=== PATIENT | female | born 1980 | race Caucasian/White ===

== ENCOUNTER 2018-09-22 06:20 | Day surgery (SDC) | payer OTHER, SELFPAY ==
[2018-09-16 12:01] VITALS: BMI 21.7
[2018-09-22] VITALS (7 sets, daily range): BP systolic 102–121; BP diastolic 54–78; PULSE 58–73; RESP 8–16; TEMP 36.3–37.1; O2SAT 100; BMI 21.7
--- NOTE | 2018-09-22 | PATH_ITS ---
[facility] Accession Number: [id number] . 01 Material submitted: . ANAL POLYP . 02 Diagnosis: Anal Polyp, Biopsy: Benign fibroepithelial polyp (skin tag). V/09/23/2018 . 02 Electronically signed: . Yeimy Lyons MD, Pathologist NPI- [id number] . 01 Gross description: . Received one formalin-filled container labeled with the patient's name and labeled anal polyp. The specimen consists of a 0.4 x 0.4 x 0.7 cm, mojica-arana, dome-shaped portion of tissue. The specimen is inked, bisected, and entirely submitted in one cassette. (DC:[id number]) /FRR . 02 Pathologist provided ICD-10: L91.8 . 02 CPT . 510526 Performed at: 01 [facility] [address], [place], [place] [id number] MD Taz Anderson MD Phone: [phone] Performed at: 02 [facility] [address] [place], [place] [id number] MD Yeimy Lyons MD Phone: [phone]
[2018-09-22] MEDS: LACTATED RINGERS 1,000 ML 42 ML IV (07:00)
[2018-09-22] MEDS: CEFAZOLIN 2 GM/100 ML FROZ.PIGGY IV (07:54)
--- NOTE | 2018-09-22 07:58 | PM.HP.1 ---
History of Present Illness Date Patient Seen: 09/22/18 Time Patient Seen: 07:58 Chief complaint: [id number] EXAM UNDER ANESTHESIA Narrative: Jemma presents today for excision of an anal skin tag. She reports there has been no change in her health since we last saw her in clinic in August. Symptoms associated with a skin tag have not changed or improved. Patient History Medical History Anemia (Acute) CKD (chronic kidney disease), stage III (Acute) Constipation (Acute) Generalized headaches (Acute) Family History Mother Hypertension Father Diabetes mellitus Hypertension Social History marital status: household members: spouse and children education level: college occupational status: student Smoking Status: Never smoker alcohol intake: current substance use type: does not use Family & Social History Family History Mother Hypertension Father Diabetes mellitus Hypertension Social History: household members spouse,children Tobacco & Substance use: Smoking Status Never smoker alcohol intake current Substance Use Type does not use Meds Home Medications Medication Instructions Recorded Confirmed Type ascorbic acid (vitamin C) 500 mg 1,000 mg PO DAILY cap 08/30/18 09/22/18 History capsule cholecalciferol (vitamin D3) 1,000 5,000 unit PO DAILY 08/30/18 09/22/18 History unit capsule doxylamine succinate 25 mg tablet 12.5 mg PO BEDTIME PRN tab 08/30/18 09/22/18 History magnesium gluconate 27 mg 500 mg PO DAILY tab 08/30/18 09/22/18 History magnesium (500 mg) tablet multivitamin tablet 1 tab PO DAILY 08/30/18 09/22/18 History omega-3 fatty acids 1,000 mg 1,000 mg PO DAILY 08/30/18 09/22/18 History capsule Allergies Allergy/AdvReac Type Severity Reaction Status Date / Time Sulfa (Sulfonamide Allergy Unknown Hives Verified 09/22/18 06:49 Antibiotics) NSAIDS (Non-Steroidal AdvReac Verified 09/22/18 07:06 Anti-Inflamma Review of Systems Review of Systems All systems reviewed & are unremarkable except as noted in HPI and below Exam Vital Signs (past 8 hours): - 09/22/18 06:59 Temperature 97.4 F L Pulse Rate 71 Respiratory Rate 16 Blood Pressure 121/73 Pulse Oximetry 100 Oxygen Delivery Method Room Air Narrative Exam Narrative: Lungs: Clear to auscultation bilaterally Heart: Regular rate and rhythm without murmur rub or gallop abdomen: Soft, nontender, active bowel sounds extremities: Warm and well perfused Assessment & Plan Assessment & Plan narrative: 38-year-old lady here for excision of a painful and troublesome anal skin tag. We discussed the risks and benefits of the procedure and she has expressed a desire to completed today.
--- NOTE | 2018-09-22 08:09 | SUR.OPER ---
Lithotomy on padded OR bed, head on pillow, arms secured on padded arm boards at <90 degrees abduction. Legs secured in padded yellow fins stirrups.
[2018-09-22] MEDS: LIDOCAINE 1% W/EPI INJ 20 ML INJ (08:14)
[2018-09-22] MEDS: BUPIVACAINE 0.5% (PF) VIAL 30 ML INJ (08:15)
[2018-09-22] MEDS: DIBUCAINE 1% OINT 28 GM 1 APPLIC TOP (08:15)
--- NOTE | 2018-09-22 08:15 | PM.OP.1 ---
Operative Date/Time/Diagnoses Date of procedure: 09/22/18 Time of procedure: 08:15 Pre-op diagnosis: Anal skin tag or polyp Post-op diagnosis: same Procedure & Clinicians Procedure: Examination under anesthesia with excision of an anal polyp Same procedure as scheduled: Yes Surgeon: Fouzia Arevalo Click Yes if Unassisted: Yes Anesthesia Type: General ( Dr. Scott) Operative Notes Findings: 1 cm polyp just external to the anal orifice. Appears more consistent with a true polyp that hemorrhoid. Closure Type: primary Specimen(s): other ( Anal polyp to pathology in formalin) Estimated Blood Loss (mL): 1 Procedure in detail: after obtaining informed consent, the patient brought to the operating room and placed in the supine position on the operating table. Following successful induction of general anesthesia, appropriate padding of all bony prominences, and placement of appropriate monitors, the perianal region was prepped and draped in the standard surgical fashion. A time-out was held per SCOAP protocol. We began by examining the perianal region in the anal canal itself. With the patient completely relaxed, I was able to determine that the polyp was actually just exterior to the external sphincter. The anal canal itself was intact. There were no prolapsing internal hemorrhoids. External hemorrhoid tissue was normal and not involved with the neoplasm. The area was prepped with Betadine. The area around the polyps was anesthetized with local anesthetic. An elliptical incision was then created around the base of the polyp and it was excised in total and passed from the table as a specimen. The wound was then closed with interrupted chromic suture. Did became was applied to the skin and mesh panties following that. All sponge, needle, and instrument counts were correct at the conclusion of the case. The patient was allowed to wake from anesthesia without difficulty, and taken to the postanesthesia care unit in good condition. Complications: none Condition: stable Disposition: PACU Plan for aftercare: 1. Discharge home 2. Follow up with me in 2 weeks
--- NOTE | 2018-09-22 08:29 | SUR.PHASEI ---
Responsive to voice, talking with Dr. Arevalo. Very drowsy, denies pain/nausea
--- NOTE | 2018-09-22 08:36 | SUR.PHASEI ---
Stable, tolerating PO well, denies pain, drowsy/oriented. Prepare to transfer
--- NOTE | 2018-09-22 08:50 | SUR.PHASEI ---
0841 to OPD, bed down and locked, spouse at bedside. Report given.
--- NOTE | 2018-09-22 08:57 | SUR.PHASEII ---
pt arrived to phase II in stable condition, vss. pt sitting up and sipping ice water. pt brought to bedside. iv site clear and infusing without difficultly. pt denies any nausea or pain/discomfort. julio-pad observed to have scant amount of blood on the pad. pt appears comfortable at this time, bed in lowest position and call light given to pt. pt awaiting return of from getting pt rx filled.
== END 2018-09-22 09:24 | disposition home or self-care (01) ==
PROVIDERS: Family Provider Registered Nurse Women's Health Care, Ambulatory; PCP Family Medicine; Visit Provider Surgery
PROC: (CPT 45990; principal; 2018-09-22 07:45)
DX: L91.8 Other hypertrophic disorders of the skin (principal); D64.9 Anemia, unspecified; N18.3 Chronic kidney disease, stage 3 (moderate); K59.00 Constipation, unspecified
CPT/HCPCS: 46922; J0690; J2250; J2704

== ENCOUNTER → 2020-08-07 15:30 | Outpatient (CLI) | payer OTHER, SELFPAY ==
[2020-08-07] MEDS: COVID-19 VACC #1, MRNA(MOD) 100 MCG/0.5 ML VIAL IM (15:35)
== END ==
PROVIDERS: Family Provider Registered Nurse Women's Health Care, Ambulatory; PCP Family Medicine; Visit Provider Internal Medicine
DX: Z23 Encounter for immunization (principal)
CPT/HCPCS: 0011A; 91301

== ENCOUNTER → 2020-09-04 15:50 | Outpatient (CLI) | payer OTHER, SELFPAY ==
[2020-09-04] MEDS: COVID-19 VACC #2, MRNA(MOD) 100 MCG/0.5 ML VIAL IM (15:57)
== END ==
PROVIDERS: Family Provider Registered Nurse Women's Health Care, Ambulatory; PCP Family Medicine; Visit Provider Internal Medicine
DX: Z23 Encounter for immunization (principal)
CPT/HCPCS: 0012A; 91301

== ENCOUNTER → 2021-02-02 12:53 | Outpatient (CLI) | payer OTHER, SELFPAY ==
--- NOTE | 2021-02-02 | DI.MG.S_ITS ---
BILATERAL DIGITAL SCREENING MAMMOGRAM 3D/2D WITH CAD: 02/02/2021 CLINICAL: Routine screening. Baseline exam. No prior exams were available for comparison. The tissue of both breasts is heterogeneously dense. This may lower the sensitivity of mammography. Current study was also evaluated with a Computer Aided Detection (CAD) system. No significant masses, calcifications, or other findings are seen in either breast. IMPRESSION: NEGATIVE There is no mammographic evidence of malignancy. A 1 year screening mammogram is recommended. This exam was interpreted at Station ID: [id number]. NOTE: For mammograms, a report in lay terms will be sent to the patient. Approximately 15% of breast malignancies will not be visualized mammographically. In the management of a palpable breast mass, a negative mammogram must not discourage biopsy of a clinically suspicious lesion. Electronically Signed By: Mihai Morris M.D., jr/tom:02/04/2021 09:32:02 letter sent: Normal Exam ACR BI-RADS Category 1: Negative 3341F
== END ==
PROVIDERS: Family Provider Registered Nurse Women's Health Care, Ambulatory; PCP Family Medicine; Referring Provider Family Medicine; Visit Provider Family Medicine
DX: Z12.31 Encounter for screening mammogram for malignant neoplasm of breast (principal)
CPT/HCPCS: 77063; 77067

== ENCOUNTER → 2022-02-11 11:32 | Outpatient (CLI) | payer OTHER, SELFPAY ==
--- NOTE | 2022-02-11 | DI.MG.S_ITS ---
BILATERAL DIGITAL SCREENING MAMMOGRAM 3D/2D WITH CAD: 02/11/2022 CLINICAL: Routine screening. Comparison is made to exam dated: 02/02/2021 [facility]. The tissue of both breasts is extremely dense, which lowers the sensitivity of mammography. Current study was also evaluated with a Computer Aided Detection (CAD) system. There is an oval focal asymmetry with an obscured margin in the right breast at 9 o'clock middle depth. This is more prominent. No other significant masses, calcifications, or other findings are seen in either breast. IMPRESSION: INCOMPLETE: NEEDS ADDITIONAL IMAGING EVALUATION The oval focal asymmetry in the right breast is indeterminate. Additional views with possible ultrasound are recommended. Based on Tyrer-Cuzick model (a risk assessment model), the patient's lifetime risk is 23.1% and her 10 year risk is 3.6%. If a patient has an elevated risk, a more comprehensive evaluation should be considered and/or a referral to a genetic counselor. The [place] [employer], [place] [employer], and NCCN Guidelines advise the consideration of Breast MRI as an adjunct to screening mammography in patients whose Lifetime risk to develop breast cancer is 20% or higher. This exam was interpreted at Station ID: [id number]. NOTE: For mammograms, a report in lay terms will be sent to the patient. Approximately 15% of breast malignancies will not be visualized mammographically. In the management of a palpable breast mass, a negative mammogram must not discourage biopsy of a clinically suspicious lesion. Electronically Signed By: Zay Lakhani M.D. slc/:02/11/2022 13:08:20 letter sent: Additional Imaging Needed ACR BI-RADS Category 0: Incomplete 3340F
== END ==
PROVIDERS: Family Provider Registered Nurse Women's Health Care, Ambulatory; PCP Family Medicine; Referring Provider Family Medicine; Visit Provider Family Medicine
DX: Z12.31 Encounter for screening mammogram for malignant neoplasm of breast (principal)
CPT/HCPCS: 77063; 77067

== ENCOUNTER → 2022-02-24 10:23 | Outpatient (CLI) | payer OTHER, SELFPAY ==
--- NOTE | 2022-02-24 | DI.US.S_ITS ---
LIMITED ULTRASOUND OF RIGHT BREAST: 02/24/2022 CLINICAL: Additional evaluation requested from mammo. Comparison is made to exams dated: 02/24/2022 mammogram and 02/11/2022 mammogram - [facility]. Color flow and real-time ultrasound of the right breast 9 o'clock region were performed. Nevarez scale images of the real-time examination were reviewed. There is a benign normal lymph node with a circumscribed margin in the right breast at 9 o'clock middle depth 4 cm from the nipple measuring 0.3 cm short axis diameter. This normal lymph node displays fatty hilum. This correlates with mammography findings. Color flow imaging demonstrates that there is vascularity present. Similar adjacent benign lymph node. IMPRESSION: BENIGN There is no sonographic evidence of malignancy. The normal lymph node in the right breast is benign. A 1 year screening mammogram is recommended. Exam findings were conveyed to the patient. This exam was interpreted at Station ID: [id number]. Electronically Signed By: Zay Lakhani M.D. slc/:02/26/2022 10:40:43 letter sent: Normal Exam Ultrasound BI-RADS: 2 Benign
--- NOTE | 2022-02-24 | DI.MG.S_ITS ---
UNILATERAL RIGHT DIGITAL DIAGNOSTIC MAMMOGRAM 3D/2D WITH ADDITIONAL VIEWS: 02/24/2022 CLINICAL: Additional evaluation requested from prior study. Comparison is made to exams dated: 02/11/2022 mammogram and 02/02/2021 mammogram - [facility]. The tissue of right breast is extremely dense, which lowers the sensitivity of mammography. There is an oval focal asymmetry with an obscured margin in the right breast at 9 o'clock middle depth. No other significant masses or calcifications are seen in the breast. IMPRESSION: INCOMPLETE: NEEDS ADDITIONAL IMAGING EVALUATION The oval focal asymmetry in the right breast resembles a cyst and is indeterminate. A targeted ultrasound is recommended and will immediately follow. Based on Tyrer-Cuzick model (a risk assessment model), the patient's lifetime risk is 23.1% and her 10 year risk is 3.6%. If a patient has an elevated risk, a more comprehensive evaluation should be considered and/or a referral to a genetic counselor. The [place] [employer], [place] [employer], and NCCN Guidelines advise the consideration of Breast MRI as an adjunct to screening mammography in patients whose Lifetime risk to develop breast cancer is 20% or higher. This exam was interpreted at Station ID: [id number]. NOTE: For mammograms, a report in lay terms will be sent to the patient. Approximately 15% of breast malignancies will not be visualized mammographically. In the management of a palpable breast mass, a negative mammogram must not discourage biopsy of a clinically suspicious lesion. Electronically Signed By: Zay Lakhani M.D. slc/:02/26/2022 10:37:26 ACR BI-RADS Category 0: Incomplete 3340F
== END ==
PROVIDERS: Family Provider Registered Nurse Women's Health Care, Ambulatory; PCP Family Medicine; Referring Provider Family Medicine; Visit Provider Family Medicine
DX: R92.8 Other abnormal and inconclusive findings on diagnostic imaging of breast (principal); N64.89 Other specified disorders of breast
CPT/HCPCS: 76642; 77065; G0279

== ENCOUNTER → 2022-07-28 07:57 | Outpatient (CLI) | payer OTHER, SELFPAY ==
--- NOTE | 2022-07-28 | DI.US.S_ITS ---
PROCEDURE: US RENAL COMPLETE INDICATIONS: ATROPHY OF KIDNEY TECHNIQUE: Real-time scanning was performed of the kidneys and bladder, with image documentation. COMPARISON: [facility], , RENAL COMPLETE, 11/03/2017, 14:25. FINDINGS: Kidneys: Right kidney measures 8.4 cm. Cortical thickness is 0.8 cm. No hydronephrosis or nephrolithiasis identified on ultrasound. Left kidney measures 5.9 cm. No hydronephrosis. No stones identified on ultrasound. Cortex is 0.5 cm. Bladder: Bladder is under distended, limiting evaluation. Miscellaneous: No free pelvic fluid. IMPRESSION: Similar appearance of atrophic left kidney compared to the right. Compared to 2018 imaging, the right kidney may also be smaller in size. Correlate with renal function tests to determine need for any follow-up imaging. No hydronephrosis is evident. Urinary bladder is under distended, limiting evaluation. Dictated by: Daniel Wood M.D. on 07/28/2022 at 8:33 Approved by: Daniel Wood M.D. on 07/28/2022 at 8:35
== END ==
PROVIDERS: Family Provider Registered Nurse Women's Health Care, Ambulatory; PCP Family Medicine; Referring Provider Internal Medicine Nephrology; Visit Provider Internal Medicine Nephrology
DX: N26.1 Atrophy of kidney (terminal) (principal); N18.30 Chronic kidney disease, stage 3 unspecified
CPT/HCPCS: 76770

== ENCOUNTER → 2023-03-05 16:24 | Outpatient (CLI) | payer OTHER, SELFPAY ==
--- NOTE | 2023-03-05 | DI.MG.S_ITS ---
BILATERAL DIGITAL SCREENING MAMMOGRAM 3D/2D WITH CAD: 03/05/2023 CLINICAL: Routine screening. Comparison is made to exams dated: 02/02/2021 mammogram, 02/11/2022 mammogram, and 02/24/2022 mammogram - [facility]. Both breasts are extremely dense, which lowers the sensitivity of mammography (category d />75% glandular tissue). Current study was also evaluated with a Computer Aided Detection (CAD) system. No significant masses, calcifications, or other findings are seen in either breast. There has been no significant interval change. IMPRESSION: NEGATIVE There is no mammographic evidence of malignancy. A 1 year screening mammogram is recommended. Consider supplemental MRI screening due to dense breasts and elevated lifetime risk. Based on Tyrer-Cuzick model (a risk assessment model), the patient's lifetime risk is 23.1% and her 10 year risk is 3.9%. If a patient has an elevated risk, a more comprehensive evaluation should be considered and/or a referral to a genetic counselor. The [place] [employer], [employer], and NCCN Guidelines advise the consideration of Breast MRI as an adjunct to screening mammography in patients whose Lifetime risk to develop breast cancer is 20% or higher. This exam was interpreted at Station ID: [id number]. NOTE: For mammograms, a report in lay terms will be sent to the patient. Approximately 15% of breast malignancies will not be visualized mammographically. In the management of a palpable breast mass, a negative mammogram must not discourage biopsy of a clinically suspicious lesion. Electronically Signed By: Daniel Wood M.D. lc/:03/06/2023 08:45:53 letter sent: Normal Exam ACR BI-RADS Category 1: Negative 3341F
== END ==
PROVIDERS: Family Provider Registered Nurse Women's Health Care, Ambulatory; PCP Family Medicine; Referring Provider Family Medicine; Visit Provider Family Medicine
DX: Z12.31 Encounter for screening mammogram for malignant neoplasm of breast (principal)
CPT/HCPCS: 77063; 77067

== ENCOUNTER → 2024-02-26 15:23 | Outpatient (CLI) | payer OTHER, SELFPAY ==
--- NOTE | 2024-02-26 15:26 | DI.RAD.S_ITS ---
PROCEDURE: XR FOOT LT MIN 3V INDICATIONS: FOOT PAIN TECHNIQUE: 3 views of the foot were acquired. COMPARISON: None. FINDINGS: Bones: No fractures or dislocations. No suspicious bony lesions. Soft tissues: No tibiotalar joint effusion. Achilles tendon appears normal. IMPRESSION: No acute bony abnormality. Dictated by: Sun Chavez M.D. on 02/29/2024 at 13:13 Approved by: Sun Chavez M.D. on 02/29/2024 at 13:20
== END ==
LOC: RAD 15:25
PROVIDERS: Family Provider Registered Nurse Women's Health Care, Ambulatory; PCP Family Medicine; Referring Provider Podiatrist Foot & Ankle Surgery; Visit Provider Podiatrist Foot & Ankle Surgery
DX: M79.672 Pain in left foot (principal)
CPT/HCPCS: 73630

== ENCOUNTER → 2024-03-07 15:29 | Outpatient (CLI) | payer OTHER, SELFPAY ==
--- NOTE | 2024-03-07 15:31 | DI.MG.S_ITS ---
BILATERAL DIGITAL SCREENING MAMMOGRAM 3D/2D WITH CAD: 03/07/2024 CLINICAL: Routine screening. Comparison is made to exams dated: 03/05/2023 mammogram, 02/11/2022 mammogram, and 02/02/2021 mammogram - [facility]. Both breasts are heterogeneously dense, which may obscure small masses (category c / 51-75% glandular tissue). Current study was also evaluated with a Computer Aided Detection (CAD) system. No significant masses, calcifications, or other findings are seen in either breast. There has been no significant interval change. IMPRESSION: NEGATIVE There is no mammographic evidence of malignancy. A 1 year screening mammogram is recommended. Based on the Tyrer Cuzick model (a risk assessment model) the patient's lifetime risk is 15.8% and her 10 year risk is 2.8%. According to the ACR, ACS, and NCCN guidelines, an annual breast MRI exam along with mammogram is recommended if the patient's lifetime risk is 20% or greater. This exam was interpreted at Station ID: [id number]. NOTE: For mammograms, a report in lay terms will be sent to the patient. Approximately 15% of breast malignancies will not be visualized mammographically. In the management of a palpable breast mass, a negative mammogram must not discourage biopsy of a clinically suspicious lesion. Electronically Signed By: Romy Pereira M.D., Ph.D. mahsa/tom:03/08/2024 08:20:46 letter sent: Normal Exam ACR BI-RADS Category 1: Negative 3341F
== END ==
LOC: MAMMO 15:31
PROVIDERS: Family Provider Registered Nurse Women's Health Care, Ambulatory; PCP Family Medicine; Referring Provider Family Medicine; Visit Provider Family Medicine
DX: Z12.31 Encounter for screening mammogram for malignant neoplasm of breast (principal); R92.333 Mammographic heterogeneous density, bilateral breasts
CPT/HCPCS: 77063; 77067

== ENCOUNTER → 2024-06-14 15:59 | Outpatient (ROUT) | payer OTHER, SELFPAY | PROVIDERS: Family Provider Registered Nurse Women's Health Care, Ambulatory; PCP Family Medicine; Visit Provider Dermatology | DX: L02.223 Furuncle of chest wall (principal); L57.8 Other skin changes due to chronic exposure to nonionizing radiation; X32.XXXA Exposure to sunlight, initial encounter | CPT/HCPCS: 87070; 87075; 87205 ==

== ENCOUNTER → 2025-02-03 11:07 | Outpatient (CLI) | payer OTHER, SELFPAY | PROVIDERS: Family Provider Registered Nurse Women's Health Care, Ambulatory; PCP Family Medicine; Visit Provider Registered Nurse | DX: J02.9 Acute pharyngitis, unspecified (principal) | CPT/HCPCS: 87070; 87077; 87186 ==

== ENCOUNTER → 2025-04-10 15:29 | Outpatient (CLI) | payer OTHER, SELFPAY ==
--- NOTE | 2025-04-10 15:30 | DI.MG.S_ITS ---
MM screening mammo BI: 04/10/2025. BI-RADS: 1 CLINICAL: 45-year old female for bilateral screening mammogram. Tyrer-Cuzick lifetime risk of 13.6%. No personal or first-degree family history of breast cancer. PRIOR EXAMS 03/07/2024, 03/05/2023, 02/24/2022, 02/11/2022, MAMMOGRAPHY TECHNIQUE: 2D and 3D (tomosynthesis) digital mammographic views obtained, with additional images as needed for full coverage. Current study was also evaluated with a Computer Aided Detection (CAD) system. DENSITY C. The breasts are heterogeneously dense, which may obscure small masses. MAMMOGRAPHY FINDINGS Bilateral: No suspicious mass, asymmetry, microcalcification, or other abnormality seen. IMPRESSION: * No evidence of malignancy. RECOMMENDATIONS Bilateral * Annual screening mammography. OVERALL ASSESSMENT CATEGORY BI-RADS-1: Negative. The [employer] recommends annual screening mammography beginning at age 40 for women with average risk of breast cancer. ELECTRONICALLY SIGNED: Amari Michaud M.D. on 04/11/2025 at 09:18:05 AM PT Interpreting Station ID: [id number]
== END ==
LOC: MAMMO 15:29
PROVIDERS: Family Provider Registered Nurse Women's Health Care, Ambulatory; PCP Family Medicine; Referring Provider Family Medicine; Visit Provider Family Medicine
DX: Z12.31 Encounter for screening mammogram for malignant neoplasm of breast (principal); R92.333 Mammographic heterogeneous density, bilateral breasts
CPT/HCPCS: 77063; 77067